=== PATIENT | male | born 1960 | race Caucasian/White ===

== ENCOUNTER 2017-02-07 01:15 | Day surgery (SDC) | payer OTHER ==
[2017-02-07] VITALS (14 sets, daily range): BP systolic 92–127; BP diastolic 53–72; PULSE 71–83; RESP 12–22; O2SAT 92–98
[~2017-02-07] VITALS: Ht 172.7 cm; Wt 111.7 kg
[~2017-02-07 01:15] MED LIST: ASPI-973 PO; ATOR20TA PO; CHOL10008 PO; CLOB15CR3 TOP; LISI10TA PO; MULT-666 PO; OMEP20TA86 PO
[2017-02-07] MEDS ORDERED: 0.9% Sodium Chloride 1,000 ML IV ONE (07:40)
[2017-02-07 12:12] LABS: BASOPHILS % (AUTO) 0.4 % (0-3); EOSINOPHILS % (AUTO) 0.6 % (0-5); MONOCYTES % (AUTO) 12.2 % (4-12); Mean Corpuscular Hemoglobin 28.4 pg (27.0-35.0); Mean Corpuscular Volume 84.9 fL (81-100); NEUTROPHILS % (AUTO) 58.5 % (40-74); Platelet Count 210 bil/L (150-400)
--- NOTE | 2017-02-07 12:25 | NUR ---
PATIENT ADMITTED FOR HEART CATH WITH DR. MARIE. HE IS ACCOMPANIED BY HIS AND MOTHER.
[2017-02-07 12:33] LABS: INR 0.97 ratio
[2017-02-07] MEDS ORDERED: 0.9% Sodium Chloride 1,000 ML ONE ×2 (13:29→15:26)
[2017-02-07] MEDS ORDERED: Heparin 1,000 Unit/mL 10 mL Inj ONE ×3 (13:29→14:45)
[2017-02-07] MEDS ORDERED: Heparin 1,000 Units/500 mL NS Premix IV ONE (13:29)
[2017-02-07] MEDS ORDERED: fentaNYL-PF 50 mCg/mL 2 mL Inj ONE ×2 (13:58→15:11)
[2017-02-07] MEDS ORDERED: Nitroglycerin 50,000 mcg/250 mL D5W Premix IV ONE (14:42)
[2017-02-07] MEDS ORDERED: Atropine 1 mg/10 mL (Code) Syringe ONE (14:45)
[2017-02-07] MEDS ORDERED: Adenosine Inj 40 ML IV ONE (14:49)
[2017-02-07] MEDS ORDERED: 0.9% Sodium Chloride 100 ML ONE (14:50)
--- NOTE | 2017-02-07 15:21 | CS94 ---
[address] [address] DIAGNOSTIC CARDIAC CATHETERIZATION PATIENT: ISABELLA CASTANEDA : 1960 MR#: [id number] ADMIT: 02/07/2017 JOB ID: [id number] SERVICE DATE: 02/07/2017 CHIEF COMPLAINT: Exertional chest pain. PATIENT PRESENTATION: This 56-year-old man with hypertension, hyperlipidemia, sleep apnea, and excess weight, with worsening dyspnea on exertion and abnormal graded exercise stress test with myocardial perfusion imaging characterized by medium size, moderate intensity, reversible inferolateral perfusion defect. PROCEDURES PERFORMED: 1. Left heart catheterization--selective coronary angiogram. 2. Right common femoral artery vascular access under ultrasound guidance. 3. Left ventricular end-diastolic pressure checking. COMPLICATIONS: None. Case turned over for intervention. METHOD: Following informed consent, patient was prepped and draped in usual sterile fashion. A 6-Trinidadian sheath was placed in right common femoral artery under ultrasound guidance. Sheath placement was confirmed via femoral angiogram. JL4 and JR4 catheters were used to engage left main and right coronary artery ostia, respectively. Hand injection and craniocaudal angulation was used to obtain selective coronary angiograms. All exchanges were performed over a wire. At this point in time, pigtail was placed into the left ventricle. Left ventricular end-diastolic pressure was recorded. Pigtail was withdrawn into the aorta under continuous hemodynamic monitoring. There was no evidence of aortic stenosis documented. At this moment in time, case was turned over for intervention. FINDINGS: HEMODYNAMICS: Left ventricular end-diastolic pressure is 20 at end-expiration. Aortic pressure 133/74. There is no evidence of aortic stenosis based on pullback. Ventriculogram was deferred by intention to conserve contrast in anticipation of upcoming intervention. FEMORAL ANGIOGRAM: Left main gives rise to SFA and profunda. The sheath enters the right common femoral artery at the lower third of the femoral head just above the bifurcation. There is no evidence of contrast extravasation or dissection. No hemodynamically significant peripheral arterial disease. CORONARY ANGIOGRAM: Left main gives rise to LAD circumflex and ramus intermedius. There is mild ostial narrowing which is best appreciated on AMIN cranial view. There was no dampening on engagement present and there was good blowback as well. Left anterior descending gives rise to a large first diagonal branch, a small second diagonal branch and multiple septal perforators. There is an ulcerated, tubular, relatively short stenosis extending from the distal portion of the proximal LAD to the area just distal to the first diagonal takeoff. It is a 75% stenosis. Circumflex is a nondominant vessel. It gives rise to acute marginal branches. There was an 80% stenosis in the midportion of the circumflex just proximal to the first OM. Ramus intermedius is a medium-sized vessel which demonstrates 80% proximal/ostial stenosis. Right coronary artery is a dominant vessel which has nonhemodynamically significant but nevertheless it does have atherosclerotic disease. It gives rise to the PDA and posterolateral branch and actually gives rise to a collateral to the obtuse marginal branch. IMPRESSION: Multi-vessel coronary artery disease involving the very, very distal aspect of proximal left anterior descending, extending into the mid left anterior descending and involving proximal diagonal branch, mid obtuse marginal stenosis and ostial ramus intermedius stenosis. PLAN: Today we will address ramus intermedius disease and will likely address circumflex disease and LAD disease in a stepwise manner to minimize contrast agent exposure. Thank you very much for the opportunity to evaluate this patient. DAVID
--- NOTE | 2017-02-07 16:16 | DI95 ---
[place] [address] INTERVENTIONAL CARDIAC CATHETERIZATION PATIENT: ISABELLA CASTANEDA : 1960 MR#: [id number] ADMIT: 02/07/2017 JOB ID: [id number] DATE OF PROCEDURE: 02/07/2017 PATIENT PROFILE: The patient is a 56-year-old male who presented with angina pectoris. His stress sestamibi was abnormal, consistent with myocardial ischemia. PROCEDURE: 1. Fractional flow reserve to the second diagonal branch. 2. Balloon angioplasty and stenting to the first diagonal branch. VASCULAR CLOSURE DEVICE: Perclose. COMPLICATIONS: None. METHOD: Following diagnostic angiogram performed by Dr. Cristina, heparin 100 units/kg were given. A 6-Polish CLS 3.5 guide was advanced to the left coronary ostium. A flow wire was placed inside the second diagonal branch. Adenosine was given infusion IV. FFR was measured at 0.69. The attention was then to the first diagonal branch. A Run-through wire was placed inside this branch. The lesion was pre-dilated with a 2.0 x 15 mm balloon. A Resolute Integrity 2.25 x 12 mm stent was placed inside the lesion and deployed at 12 atmospheres for 15 seconds. A 2.0 x 8 mm balloon was used for post stent deployment dilation. It was inflated up to 10 atmospheres for 15 seconds. Nitroglycerin 200 mcg was given intracoronary. Final angiogram was obtained. Following sheath removal, hemostasis was achieved by using Perclose device. The patient tolerated the procedure well. He was transferred to [facility] in good condition. TOTAL CONTRAST USED: 200 cc. FLUOROSCOPY TIME: 11.2 minutes. RESULTS: 1. FFR of the second diagonal branch is 0.69, which indicated hemodynamic significant stenosis. 2. Successful balloon angioplasty and stenting to the critical first diagonal branch lesion by deploying one drug eluting stent to achieve an excellent angiographic result with LORI-3 flow distally. PLAN: The patient will return for elective intervention to the left anterior descending and second diagonal branch bifurcation lesion as an outpatient. [facility]
--- NOTE | 2017-02-07 18:25 | NUR ---
[facility]EE[facility] POST HEART CATH/PCI ASSUMED CARE OF PT UPON RETURN FROM TWISTER OPERATOR AT 1550. RIGHT GROIN WITH PERCLOSE HAS REMAINED SOFT, NON TENDER, NO BLEEDING OR HEMATOMA NOTED. RIGHT DP AND PT 1-2+. PT IS TAKING PO FLUIDS WITHOUT DIFFICULTY AND IV NS IS INFUSING AT 100ML/HR. DR TURPIN AND DR MARIE HERE TO DISCUSS PROCEDURE AND FUTURE PLANNED INTERVENTIONS. REPORT WAS CALLED TO PRAMOD Leigh RN AND PT AND HIS NURSING CARE WERE TRANSFERRED TO ROOM 2001 AT 1815. TELE ON.
[2017-02-07] MEDS ORDERED: 0.9% Sodium Chloride 250 ML BOLUS IV PRN (18:30)
[2017-02-07] MEDS ORDERED: Sodium Chloride LOK Flush 10 mL Syringe IVFLUSH PRN (18:30)
[2017-02-07] MEDS ORDERED: 0.9% Sodium Chloride 400 ML (4 HRS) IV ONE (18:30)
[2017-02-07] MEDS ORDERED: Ondansetron 2 mg/mL 2 mL Inj IVPUSH PRN (18:30)
[2017-02-07] MEDS ORDERED: Atropine 1 mg/10 mL (Code) Syringe IVPUSH PRN (18:30)
--- NOTE | 2017-02-07 21:35 | NUR ---
BEDREST/SITE Pt on bedrest till 1999. Pt's gait was steady, vitals stable. Pt's right groin site CDI, independent to the bathroom with 700cc output once off bedrest. Pt denies pain, N/V. Pt slightly flushed, but stated he has been flushed all day because he has been a little nervous all day. NS @ 100 till 0200, then SL. Pt drinking plenty of water, no issues noted.
--- NOTE | 2017-02-07 23:52 | NUR ---
DRESSING Pt's right groin site became saturated after ambulating to the restroom x2. Dressing changed and currently CDI with no hematoma or bruising noted. Pt's vitals stable, no pain, CMS intact, no other issues noted at this time.
[2017-02-08 02:47] VITALS: BP 111/64; PULSE 77; RESP 20; O2SAT 94
[2017-02-08 03:15] LABS: Mean Corpuscular Hemoglobin 28.3 pg (27.0-35.0); Mean Corpuscular Volume 86.3 fL (81-100)
[2017-02-08 05:48] VITALS: PULSE 82
[2017-02-08 09:08] VITALS: BP 129/75; PULSE 68; RESP 20; O2SAT 95
[2017-02-08] MEDS ORDERED: CLOP75TA3 PO (09:27)
[2017-02-08] MEDS ORDERED: METO25TA3 PO (09:27)
--- NOTE | 2017-02-08 09:29 | PCM.DIMED ---
Discharge Instructions Date of Service Feb 08, 2017 Dates of Hospitalization 02/07/2017 Discharge Diagnosis Discharge Diagnosis cad Diet Heart Healthy Activity Other (no heavy lifting (no more than 10 lbs for 10 days)) Call your provider Shortness of breath, Chest pain Patient Instructions Additional Information Dr. Barry's night manager will call you when he will do angiogram and stents Jovana Cristina MD Feb 08, 2017 09:29
[2017-02-08 10:08] VITALS: PULSE 77
--- NOTE | 2017-02-08 13:43 | NUR ---
Discharged Pt. was discharged to home with . Pt. took all his belongings with him from room [address] [place] [address]. Pt. was given educational material on new prescriptions. Pt. was also instructed to follow up with Dr. Barker in 1 Week, follow up with Dr. Cristina in 1-2 weeks, and that Dr. Barry's pipe and test supervisor would call Pt. when he will do angiogram and stents. Pt. states he understood.
--- NOTE | 2017-02-09 13:43 | DIS ---
[address] [address] DISCHARGE SUMMARY PATIENT: ISABELLA CASTANEDA : 1960 MR#: [id number] ADMIT: 02/07/2017 JOB ID: [id number] DIS: 02/08/2017 CHIEF COMPLAINT: Abnormal stress test. PROCEDURES PERFORMED: 1. Left heart catheterization--selective coronary angiogram demonstrated hemodynamically significant disease involving mid LAD stenosis, ostial 1st diagonal stenosis, ostial 2nd diagonal stenosis, mid circumflex stenosis. 2. Fractional flow reserve of the circumflex lesion which proved that it was not hemodynamically significant. 3. Resolute drug-eluting stent deployed to first diagonal lesion. 4. LAD lesion and the second diagonal lesions will be fixed at some point in the future. 5. Telemetry which demonstrated brief, second long run of ventricular tachycardia. Very brief eight-beat run of nonsustained ventricular tachycardia. HOSPITAL COURSE: The patient was admitted electively for left heart catheterization following abnormal stress test that demonstrated inferolateral perfusion defect. Cath showed mid LAD disease, 1st D1 disease, second diagonal disease, and circumflex disease. The patient underwent intervention to the first diagonal branch. However, because he was at risk for contrast nephropathy, intervention to the LAD and a second diagonal, which would have to be done in a kissing balloon fashion, was delayed. The patient recovered well overnight. Hemostasis was obtained via Perclose closure device. He had no complications. Therefore, he is discharged home in stable condition on the following medications. 1. Aspirin 81 mg daily. 2. Plavix 75 mg daily. 3. Toprol-XL 25 mg daily. 4. Lipitor 20 mg daily. 5. Lisinopril 10 mg daily. 6. Pepcid 20 mg twice a day as needed. 7. He was instructed to stop omeprazole since this can interact with Plavix. He will be contacted by Dr. Collins's real estate administrative assistant to decide on the date of his upcoming elective intervention to the diagonal and mid LAD. Thank you very much for the opportunity to evaluate him.
== END 2017-02-08 11:29 | disposition home or self-care (01) ==
LOC: SOUO 01:15 → EDSTATUS 14:40 → PCC 18:11 → SOUO 02-08 11:29
PROVIDERS: ATTEND Internal Medicine
DX: I25.119 Atherosclerotic heart disease of native coronary artery with unspecified angina pectoris (principal); I10 Essential (primary) hypertension; E78.5 Hyperlipidemia, unspecified; G47.33 Obstructive sleep apnea (adult) (pediatric); Z79.82 Long term (current) use of aspirin; E78.00 Pure hypercholesterolemia, unspecified; E78.1 Pure hyperglyceridemia; E66.3 Overweight; Z68.38 Body mass index [BMI] 38.0-38.9, adult; I47.2 Ventricular tachycardia
CPT/HCPCS: 36415; 80048; 85025; 85027; 85610; 93458; 93571; 99152; 99153; C1725; C1760; C1769; C1874; C1887; C9600; J0153; J1200; J1644; J2060; J2250; J3010; J7030; Q9967

== ENCOUNTER 2017-02-21 00:46 | Day surgery (SDC) | payer OTHER ==
[2017-02-21] VITALS (13 sets, daily range): BP systolic 117–131; BP diastolic 69–88; PULSE 66–84; RESP 12–20; O2SAT 93–97
[~2017-02-21] VITALS: Ht 172.7 cm; Wt 108.9 kg
[~2017-02-21 00:46] MED LIST changes: +CLOP75TA3 PO; +METO25TA3 PO; -OMEP20TA86 PO
[2017-02-21 09:28] LABS: BASOPHILS % (AUTO) 0.5 % (0-3); EOSINOPHILS % (AUTO) 1.8 % (0-5); MONOCYTES % (AUTO) 8.2 % (4-12); Mean Corpuscular Hemoglobin 27.9 pg (27.0-35.0); Mean Corpuscular Volume 84.2 fL (81-100); NEUTROPHILS % (AUTO) 63.3 % (40-74); Platelet Count 238 bil/L (150-400)
--- NOTE | 2017-02-21 09:33 | NUR ---
Admit [facility] Admitted to [facility] 3 about 0830. VSS. Denies pain. Tele SR. IVs started and labs sent. Dr. Barry in to consent pt. See EMR for admit info and assessment. Procedure and recovery reviewed and verbalizes understanding. Awaiting lab results and open hearth furnace laborer.
[2017-02-21] MEDS ORDERED: Nitroglycerin 50,000 mcg/250 mL D5W Premix IV ONE (09:34)
[2017-02-21] MEDS ORDERED: Heparin 1,000 Unit/mL 10 mL Inj ONE ×2 (09:34→11:06)
[2017-02-21] MEDS ORDERED: Heparin 1,000 Units/500 mL NS Premix IV ONE (09:34)
[2017-02-21] MEDS ORDERED: Heparin 5,000 Units/500 mL NS Premix IV ONE ×2 (09:34→11:44)
[2017-02-21] MEDS ORDERED: fentaNYL-PF 50 mCg/mL 2 mL Inj ONE ×2 (09:56→11:55)
[2017-02-21] MEDS ORDERED: Atropine 1 mg/10 mL (Code) Syringe ONE (10:25)
--- NOTE | 2017-02-21 13:33 | NUR ---
Received Pt to laboratory animal care veterinarian about 1000. Returned about 1255. VSS. Denies pain. Tele SR. Groin precautions reviewed and verbalizes understanding. Taking po well. IVF infusing per orders. SPO2 occ. drifts down to 88%. O2 placed at 2L BNC with SPO2 mid 90's. Dozing intermittently but awakens quickly to verbal. Cont. to monitor per orders.
--- NOTE | 2017-02-21 14:26 | DI95 ---
[address] [address] INTERVENTIONAL CARDIAC CATHETERIZATION PATIENT: ISABELLA CASTANEDA : 1960 MR#: [id number] ADMIT: 02/21/2017 JOB ID: [id number] DATE OF PROCEDURE: 02/21/2017 PATIENT PROFILE: The patient is a 56-year-old male with history of hypertension, hypercholesterolemia, obesity and obstructive sleep apnea. The patient has angina pectoris with abnormal stress test. PROCEDURE: Complex angioplasty and stent placement to the bifurcation lesion of the mid left anterior descending and second diagonal branch. VASCULAR CLOSURE DEVICE: StarClose. COMPLICATION: Dissection of the mid and distal left anterior descending. METHOD: Vascular access was obtained from the right groin under 1% lidocaine local anesthesia using a 7-Maltese sheath. A 7-Maltese CLS 3.5 guide was advanced to the left coronary ostium. One Run-through wire was placed inside the diagonal branch. Another Run-through wire was placed inside the left anterior descending artery. A 2.5 x 15 mm balloon was used to pre dilate in the diagonal branch. A 3.0 x 15 mm balloon was used to pre dilate in the left anterior descending. A Resolute Integrity 2.5 x 12 mm stent was placed in the left anterior descending artery and covered the origin of the second diagonal branch. This was deployed at 18 atmospheres for 25 seconds. The diagonal wire was then pulled back and went through the stent strut into the left anterior descending artery. A Sprinter 1.25 x 15 mm balloon was then used to dilate to the stent strut. This was followed by a 2.0 and a 3.0 mm balloon. An attempt to advanced a Resolute 3.0 x 22 mm stent to the left anterior descending artery lesion was unsuccessful. The left anterior descending artery lesion was then dilated again with a 1.25, a 2.0 and a 3.0 mm balloon. The angiogram after the 3.0 mm balloon inflation showed dissection into the distal mid portion. A Xience 2.25 x 15 mm stent was then placed inside the distal mid left anterior descending artery lesion and deployed at 14 atmospheres for 18 seconds. The angiogram at this point demonstrates further dissection distal to the stent. An attempt to advance a Xience 2.25 x 12 mm stent to the lesion was unsuccessful. A 2.0 mm balloon was then used to dilate the lesion. A Xience 2.25 x 12 mm stent was then placed distal to the first stent and deployed at 9 atmospheres for 15 seconds. A Resolute Integrity 2.25 x 14 mm stent was placed proximal to the first Xience stent and deployed at 14 atmospheres for 20 seconds. A second Resolute Integrity 2.25 x 22 mm stent was placed proximal to the third stent and deployed at 13 atmospheres for 20 seconds. Nitroglycerin was given intracoronary. Final angiogram was obtained. Right femoral angiogram was performed before sheath removal. Hemostasis was achieved by using a StarClose device. The patient tolerated the procedure well. He was transferred to [facility] in good condition. TOTAL CONTRAST USED: 250 cc. FLUOROSCOPY TIME: 16.6 minutes. RESULTS: Successful balloon angioplasty and stenting to the bifurcation lesion of the left anterior descending artery and second diagonal branch by deploying five drug-eluting stents with four stents in the left anterior descending and one stent in the diagonal branch to achieve an excellent angiographic result with LORI-3 flow distally. The procedure was complicated by coronary dissection, which was successfully treated with stenting. NOTE: Please use modifier code 22 due to complex and prolonged procedure. MTDD
--- NOTE | 2017-02-21 15:45 | NUR ---
Transfer Groin had track ooze. Manual pressure held for 10 min x2 and improved. lab rep placed pressure dressing for 45min then changed. No hematoma. VSS. Tele SR. Denies pain. Report called to Yasmin Sánchez RN. Transported to [facility] via bed by staff. with pt. Pt. in no distress.
[2017-02-21] MEDS ORDERED: Atropine 1 mg/10 mL (Code) Syringe IVPUSH PRN (16:05)
[2017-02-21] MEDS ORDERED: 0.9% Sodium Chloride 400 ML (4 HRS) IV ONE (16:05)
[2017-02-21] MEDS ORDERED: Ondansetron 2 mg/mL 2 mL Inj IVPUSH PRN (16:05)
--- NOTE | 2017-02-21 16:14 | NUR ---
Admit Pt admitted to [facility] from [facility] at 1600. A&Ox3, Vitals stable, no c/o of pain, groin site soft and non tender, minimal bruising. Bedrest till 1700.
[2017-02-21] MEDS ORDERED: 0.9% Sodium Chloride 250 ML BOLUS IV PRN (16:15)
[2017-02-21] MEDS: 0.9% Sodium Chloride 1,000 ML IV ONE ×2 (16:16→16:55)
[2017-02-21] MEDS: Clobetasol Prop 0.05% 15 Gm Ointment TOPICAL SCH (20:18)
[2017-02-21] MEDS ORDERED: Clobetasol Prop 0.05% 15 Gm Ointment TOPICAL SCH (20:30)
[2017-02-22 03:17] VITALS: BP 113/64; PULSE 70; RESP 20; O2SAT 96
[2017-02-22 05:21] VITALS: PULSE 67
[2017-02-22 05:54] LABS: Mean Corpuscular Hemoglobin 28.2 pg (27.0-35.0); Mean Corpuscular Volume 85.1 fL (81-100)
--- NOTE | 2017-02-22 07:28 | NUR ---
Activity/Groin Site Pt has been able to get up with SBA of that is in the room to go to the bathroom to use the urinal. Pt has had no c/o of chest pain, groin pain, or dizziness when getting OOB to go to the bathroom. Pt's groin site continues to be soft and nontender with no visible drainage on the gauze with bio-occlusive dressing. Pt has pulses bilaterally in both lower extremities.
[2017-02-22] MEDS ORDERED: MeTOProlol XL 25 mg ER24 Tablet PO SCH (08:30)
[2017-02-22] MEDS: Clobetasol Prop 0.05% 15 Gm Ointment TOPICAL SCH (08:30)
[2017-02-22 08:40] VITALS: BP 126/76; PULSE 76; RESP 16; O2SAT 96
[2017-02-22 09:25] VITALS: PULSE 73
--- NOTE | 2017-02-22 10:44 | NUR ---
Social Work Note: Screen Note Data& Assessment: EMR reviewed. Russel Day is a 56 year old male cardiac pt here for chest pain. Pt has [employer] insurance coverage and sees Mariano Barker DO for primary care. Pt lives in [place] with his spouse and is independent at baseline. Pt is ambulating with his in his room, SBA with nursing. No discharge needs identified at this time. SW to continue to follow if any needs arise. Plan: Anticipated discharge home via POV when medically ready. No discharge needs identified at this time. SW to continue to follow if any needs arise. DAVID Quinn
--- NOTE | 2017-02-22 10:54 | PCM.DIMED ---
Discharge Instructions Date of Service Feb 22, 2017 Dates of Hospitalization 02/21/2017 Discharge Diagnosis Discharge Diagnosis Elective PCI for CAD Diet Heart Healthy Activity Other (No lifting of more than 5 pounds for one week) Patient Instructions Provider: Jovana Cristina MD Follow-up in: 2 weeks Kati Kingston MD Feb 22, 2017 10:54
--- NOTE | 2017-02-22 13:55 | NUR ---
Discharge Pt left with at 1300. All belongings taken with, Discharge instructions gone over and understood. Questions answered. IV and tele removed.
== END 2017-02-22 13:25 | disposition home or self-care (01) ==
LOC: SOUO 00:46 → PCC 15:59 → SOUO 02-22 13:25
PROVIDERS: ATTEND Internal Medicine Interventional Cardiology
DX: I25.119 Atherosclerotic heart disease of native coronary artery with unspecified angina pectoris (principal); I97.88 Other intraoperative complications of the circulatory system, not elsewhere classified; I25.42 Coronary artery dissection; I10 Essential (primary) hypertension; E78.5 Hyperlipidemia, unspecified; G47.33 Obstructive sleep apnea (adult) (pediatric); Z79.82 Long term (current) use of aspirin; E78.00 Pure hypercholesterolemia, unspecified; E78.1 Pure hyperglyceridemia; Z68.38 Body mass index [BMI] 38.0-38.9, adult; E66.9 Obesity, unspecified
CPT/HCPCS: 36415; 80048; 85025; 85027; 93005; 99152; 99153; C1725; C1760; C1769; C1874; C1887; C9600; C9601; J0461; J1200; J1644; J2060; J2250; J3010; J7030; Q9967

== ENCOUNTER 2017-02-24 21:22 | Inpatient (IN) | payer OTHER ==
[~2017-02-24] VITALS: Ht 172.7 cm; Wt 107.6 kg
[2017-02-24] MEDS ORDERED: Senna-Docusate 8.6-50 mg Tablet PO PRN (22:45)
[2017-02-24] MEDS ORDERED: Ondansetron 2 mg/mL 2 mL Inj IVPUSH PRN (22:45)
[2017-02-24] MEDS ORDERED: Alum-Mag Hydrox-Simeth 30 mL Suspension PO PRN (22:45)
[2017-02-24] MEDS ORDERED: Polyethylene Glycol (PEG) 17 Gm Powder PO PRN (22:45)
[2017-02-24] MEDS ORDERED: LORazepam 0.5 mg Tablet PO ONE (23:00)
[2017-02-24 23:16] VITALS: BP 132/95; PULSE 82; RESP 16; O2SAT 96
[2017-02-24] MEDS ORDERED: MAGN400C PO (23:44)
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
[2017-02-24] MEDS: Sodium Chloride LOK Flush 10 mL Syringe IVFLUSH SCH (23:57)
[2017-02-25] VITALS (9 sets, daily range): BP systolic 115–135; BP diastolic 73–83; PULSE 72–92; RESP 16–20; O2SAT 94–99
[2017-02-25] MEDS: 0.9% Sodium Chloride 1,000 ML IV SCH ×3 (01:23→18:34)
[2017-02-25 03:08] LABS: BASOPHILS % (AUTO) 0 % (0-3); EOSINOPHILS % (AUTO) 1 % (0-5); MONOCYTES % (AUTO) 10 % (4-12); Mean Corpuscular Volume 84.7 fL (81-100); NEUTROPHILS % (AUTO) 68 % (40-74); Platelet Count 255 bil/L (150-400)
[2017-02-25 03:48] LABS: INR 0.96 ratio
[2017-02-25 05:07] LABS: TROPONIN T 0.778 ug/L (0.0-0.011)
[2017-02-25] MEDS ORDERED: Heparin 5,000 Unit/mL Inj IVPUSH ONE (05:15)
[2017-02-25] MEDS ORDERED: Heparin 25K Unit/500mL 0.45 NS 25,000 UNIT in IV Premix 1 EACH IV SCH ×2 (05:15→13:45)
--- NOTE | 2017-02-25 07:23 | NUR ---
Admit Note/Cardiac/Anxiety/O2 Pt admitted to room 2006 around 2300, admission and med rec completed by Christianne Renner RN. Pt denied any chest pain but did voice anxiety over situation. MD ordered one time Ativan dose which was somewhat effective. Pt appeared to sleep intermittently though still voiced some anxiety when awake. Pt tele SR 70s, BP stable. Trops trended up and CKMB at critical level this morning, MD notified and ordered Heparin drip. Pt NPO starting around 0100, wet swabs given for oral care. Pt on RA while awake, desats on occasion while asleep and placed on 2L NC, monitored on SUPERVISOR MACHINING.
[2017-02-25] MEDS: Sodium Chloride LOK Flush 10 mL Syringe IVFLUSH SCH ×3 (07:59→22:36)
[2017-02-25] MEDS ORDERED: MeTOProlol XL 25 mg ER24 Tablet PO SCH (08:30)
--- NOTE | 2017-02-25 08:36 | PCM.PNMED ---
Subjective Date of Service Feb 25, 2017 Subjective No chest pain or dyspnea. No nausea, or diaphoresis. No abdomen pain. Some anxiety. Overnight events reviewed. Exam Vital Signs Vital Sign - Last Date Time Temp Pulse Resp B/P Pulse Ox O2 Delivery O2 Flow Rate FiO2 02/25/17 08:02 36.2 79 16 135/79 99 Room Air 02/25/17 03:41 2.00 Intake and Output 02/24/17 02/24/17 02/25/17 Cumulative From/Thru 15:00 23:00 07:00 02/24/17 23:18 - 02/25/17 06:29 Intake Total 586 ml 586 ml Balance 586 ml 586 ml Intake IV Total 586 ml 586 ml Exam Alert and oriented. No distress, fluent speech Anicteric sclera Lungs clear Regular heart, no murmur. Abdomen soft, ND No edema. Good pulses. IVs and Medications Medications Reviewed: Medications were reviewed in detail Lab and Diagnostics Result Diagram: 02/25/17 0239 02/25/17 0239 Assessment & Plan # Acute Coronary Syndrome (NSTEMI), Present on Admission, improving. -Patient presented to [facility] urgency department complaining of acute onset substernal chest pressure rated 7 out of 10 and constant for her to 1.5 hours that resolved on 3 nitroglycerin pills and Trops up to 0.777 at peak value. Will continue dual antiplatelets as well as metoprolol and heparin drip. Recently had multiple stents (6). Will discuss with cardiology (cath verses medical management). # Hypercholesterolemia - We will continue home medication atorvastatin # Hypertension - Continue home medication metoprolol succinate ER 25 mg daily Disposition: Admitted to observation, secondary to severity of presenting symptoms, treatment plan, complexity of clinical work up, and risk of adverse events. CODE STATUS: Full code PCP: Dr. Joesph Nichols [facility] Vice President Diversity Dr. Cristina shoe repair cobbler Dr. Barry DVT PE prophylaxis: IV heparin drip Pain Evaluation: Adequate Pain Control VTE Prophylaxis: Sub-Q Heparin (Unfractionated) VTE Mechanical Devices: Intermittant Pneumatic CD Resuscitation Status: CPR: Attempt Resuscitation Time spent 25 min Jaleel Ivan MD Feb 25, 2017 08:36 Jaleel Ivan MD Feb 25, 2017 08:36
[2017-02-25] MEDS ORDERED: LORazepam 0.5 mg Tablet PO ONE ×2 (13:50→23:20)
[2017-02-25] MEDS: Heparin 5,000 Unit/mL Inj IVPUSH PRN ×2 (14:01→18:21)
--- NOTE | 2017-02-25 18:47 | NUR ---
Heparin drip and cardiac lab Heparin drip infusing at 1250 u/hr now. Next PTT scheduled at 2315 tonight. Instructed pt. to NPO after midnight in preparation for cardiac catheterization tomorrow at 1000. No pain, ADLs independent.
[2017-02-25] MEDS: MeTOProlol XL 25 mg ER24 Tablet PO SCH (19:31)
--- NOTE | 2017-02-25 20:14 | CONS ---
[address] [address] CONSULTATION REPORT PATIENT: ISABELLA CASTANEDA : 1960 MR#: [id number] ADMIT: 02/24/2017 JOB ID: [id number] DATE OF SERVICE: 02/25/2017 I have been asked by the hospitalist to see the patient, who presents with a [id number] TX four days after extensive LAD stenting. The patient is a very pleasant, 56-year-old gentleman with a multiple cardiac risk factors including a strong family history, a history of hyperlipidemia and hypertension, but without diabetes or smoking. He gives a history of atypical right precordial chest discomfort over the last several months which was somewhat persistent but aggravated predominantly by lifting and improved with rest, but not clearly anginal at all. He was aware of increased exertional dyspnea and underwent an exercise treadmill stress test at [facility]. He developed modest abnormal ST-segment changes after exercising for about 6-1/2 to 7 minutes on a Jose protocol. He then was referred to Cardiology and underwent a nuclear cardiac stress study for further investigation, and at this point, he was actually able to exercise for 9-1/2 minutes on a Jose protocol with EKG changes of ischemia, limited by dyspnea, but again on neither treadmill did he have any symptoms of angina-like chest discomfort. In any event, he had evidence of reversible ischemia on his nuclear medicine stress study and subsequently was brought in and underwent diagnostic coronary angiography on February 07. This demonstrated multivessel coronary disease with modest left main ostial narrowing. The LAD showed significant proximal stenosis in the region of a proximal diagonal vessel. He also had an 80% stenosis in the mid portion of the circumflex and a ramus intermedius vessel, demonstrating an 80% proximal or ostial stenosis. The right coronary artery was dominant with diffuse moderately severe atherosclerotic disease but no hemodynamically significant lesions. The patient underwent intervention by Dr. Collins with a balloon angioplasty and stenting to the first diagonal vessel. He was subsequently brought back for repeat intervention on February 21, and at that time, underwent a complicated procedure. He had a stent placed to the LAD proximally. Actually I think it is meant to be the diagonal vessel was initially stented and then a wire was put through that to the LAD and ultimately after balloon angioplasty, the LAD was noted to have a dissection into the distal mid LAD. Subsequently, multiple stents were used to patch up the LAD distal to the proximal stenosis. He ended up with a total of five or six stents to the LAD at that time. Angiographic results actually looked quite good and the patient was discharged home the following day on combination of: 1. Aspirin 81 mg daily. 2. Clopidogrel 75 mg daily. 3. Atorvastatin 40 mg a day. 4. Lisinopril 10 mg a day. 5. Metoprolol succinate 25 mg daily. The patient notes that after the 1st stent was placed, he noted that his right precordial discomfort resolved. He felt well for the next four days and was able to be active physically, but yesterday while at rest, developed the onset of a substernal precordial squeezing, pressure-like discomfort which radiated into the medial aspect of his left arm and was associated with symptoms of moderate dyspnea and mild diaphoresis. His promptly took him to the emergency department at [facility] where he received three sublingual nitroglycerin tablets and topical nitro paste with resolution of the discomfort. However, this dropped his blood pressure into the 80s and the nitropaste was removed with improvement in his blood pressure. His troponin was abnormal and subsequently he was transferred here for further investigation. He has remained free of recurrent discomfort in the interval. However, laboratory data shows that his troponin increased from 0.336 on admission yesterday to a peak of 1.1 earlier today. EKG shows some T-wave inversions which are somewhat subtle in the lateral precordial leads. The rest of his evaluation is fairly unremarkable. His past medical history and review of systems is unchanged from previous examinations. He has had no bleeding issues at all. He is quite anxious and cannot get his mind off of his cardiac- related issues at this point in time, but has had no problems with symptomatic dyspnea or nocturnal pulmonary congestion, palpitations, or dysrhythmias. He has seems to be tolerating all of his medications well. PHYSICAL EXAMINATION: Shows a pleasant, 56-year-old gentleman in no acute distress. HEENT examination is unremarkable. His cardiovascular examination is unremarkable otherwise. Heart sounds normal. IMPRESSION: The patient presents with a [id number] myocardial infarction four days after extensive stenting to the left anterior descending. It is possible that one of his small diagonal vessels occluded or perhaps septal manual lathe machinist branch. His distal circumflex or his right coronary artery are also potential culprits. The potential is that clopidogrel has been ineffective and maybe he had a small amount of stent thrombosis that accounts for his event. I am going to recommend that we change him from clopidogrel to prasugrel at 10 mg daily to eliminate any potential concern about him being unresponsive to clopidogrel or less responsive to clopidogrel. I will get him scheduled to undergo diagnostic coronary angiography again tomorrow morning. Dr. Collins is available tomorrow morning and I have not yet been able to touch base with Dr. Collins, but will see if we can get him to repeat Mr. Castaneda's coronary angiography tomorrow. I am hopeful that he does not require any further stenting.
[2017-02-26] VITALS (17 sets, daily range): BP systolic 109–145; BP diastolic 65–90; PULSE 67–81; RESP 14–20; O2SAT 92–99
[2017-02-26] MEDS: 0.9% Sodium Chloride 1,000 ML IV SCH ×2 (02:39→12:38)
[2017-02-26] MEDS: Sodium Chloride LOK Flush 10 mL Syringe IVFLUSH SCH ×3 (08:30→23:58)
[2017-02-26] MEDS: MeTOProlol XL 25 mg ER24 Tablet PO SCH ×2 (08:32→20:06)
--- NOTE | 2017-02-26 08:44 | PCM.PNMED ---
Subjective Date of Service Feb 26, 2017 Subjective No chest pain or dyspnea overnight. No nausea or diaphoresis. Less anxiety. No diarrhea or abdomen pain. No overnight events. Exam Vital Signs Vital Sign - Last Date Time Temp Pulse Resp B/P Pulse Ox O2 Delivery O2 Flow Rate FiO2 02/26/17 04:32 36.5 80 20 125/76 96 Room Air 02/25/17 03:41 2.00 Intake and Output 02/25/17 02/25/17 02/26/17 Cumulative From/Thru 15:00 23:00 07:00 02/24/17 23:18 - 02/26/17 06:53 Intake Total 200 ml 2436 ml 1979 ml 5201 ml Output Total 1525 ml 1000 ml 2650 ml 5175 ml Balance -1325 ml 1436 ml -671 ml 26 ml Intake Oral 220 ml 200 ml 420 ml IV Total 200 ml 2216 ml 1779 ml 4781 ml Output Urine Total 1525 ml 1000 ml 2650 ml 5175 ml Exam Alert and oriented. No distress, fluent speech Anicteric sclera Lungs clear Regular heart, no murmur. Abdomen soft, ND No edema. Good pulses. No skin rash. IVs and Medications Medications Reviewed: Medications were reviewed in detail Lab and Diagnostics Result Diagram: 02/26/17 0256 02/25/17 0239 Assessment & Plan #. Acute Coronary Syndrome (NSTEMI), Present on Admission, improving. Will continue dual antiplatelets as well as metoprolol and heparin drip. Recently had multiple stents (6). He is going for angiogram this AM. Repeat troponin. #. Hypercholesterolemia - We will continue home medication atorvastatin #. Hypertension - Continue home medication metoprolol succinate ER 25 mg daily Pain Evaluation: Adequate Pain Control VTE Prophylaxis: Sub-Q Heparin (Unfractionated) VTE Mechanical Devices: Intermittant Pneumatic CD Resuscitation Status: CPR: Attempt Resuscitation Jaleel Ivan MD Feb 26, 2017 08:44
[2017-02-26 09:00] LABS: Mean Corpuscular Hemoglobin 28.2 pg (27.0-35.0); Mean Corpuscular Volume 85.4 fL (81-100)
[2017-02-26] MEDS ORDERED: Heparin 5,000 Units/500 mL NS Premix IV ONE (09:06)
[2017-02-26] MEDS ORDERED: Heparin 1,000 Units/500 mL NS Premix IV ONE (09:06)
[2017-02-26] MEDS ORDERED: Nitroglycerin 50,000 mcg/250 mL D5W Premix IV ONE (09:38)
[2017-02-26] MEDS ORDERED: Heparin 1,000 Unit/mL 10 mL Inj ONE (09:49)
[2017-02-26] MEDS ORDERED: fentaNYL-PF 50 mCg/mL 2 mL Inj ONE (09:50)
[2017-02-26 09:56] LABS: TROPONIN T 0.565 ug/L (0.0-0.011)
[2017-02-26] MEDS ORDERED: Eptifibatide IV Infusion 75,000 MCG in IV Premix 1 EACH IV ONE (11:40)
[2017-02-26] MEDS ORDERED: 0.9% Sodium Chloride 1,000 ML IV PRN (11:48)
[2017-02-26] MEDS ORDERED: 0.9% Sodium Chloride 250 ML IV PRN (11:48)
[2017-02-26] MEDS ORDERED: Ondansetron 2 mg/mL 2 mL Inj IVPUSH PRN (11:50)
[2017-02-26] MEDS ORDERED: Eptifibatide 20,000 mCg/10 mL Inj ONE (12:14)
[2017-02-26] MEDS: Eptifibatide IV Infusion 75,000 MCG in IV Premix 1 EACH IV SCH ×2 (12:38→18:13)
[2017-02-26] MEDS ORDERED: Eptifibatide 20,000 mCg/10 mL Inj IV ONE (12:45)
--- NOTE | 2017-02-26 13:38 | NUR ---
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 Alert and oriented, but sleepy. Right groin site puffy, but soft and nontender. Small palpable area noted above old star closure device; unchanged throughout recovery. Vitals stable throughout. Pt placed on 2L oxygen for hx HELLEN while sleeping. Per MD orders, pt bolused w/ Integrilin and drip started at 1130; rate/dose verified w/ pharmacy. Report given to NANDO Reyes. Pt transported back to room 2006 at 1330 in stable condition.
--- NOTE | 2017-02-26 15:21 | NUR ---
Social Work Note: Screen Note Data& Assessment: EMR reviewed. Russel Day is a 56 year old male admitted on 02/24/2017 for chest pain. Pt has [employer] insurance coverage. Pt sees Matthew Barker DO for primary care. Pt lives in [place] with family and is independent at baseline. Pt has been independent in his room. No discharge needs identified at this time. SW to continue to follow if any needs arise. Plan: Anticipated discharge home via POV when medically ready. No discharge needs identified at this time. SW to continue to follow if any needs arise. DAVID Quinn
--- NOTE | 2017-02-26 18:16 | NUR ---
Cath Pt. went for his procedure at about 1000 this morning and did not return to room [address] [place] [address] until ~1300. Pt. had an incision to his right groin. Right groin has a small bruise from previous cath and Pt. states soreness but no pain. Upon palpation sight is soft and nontender. Minimal amounts of blood for drainage tegaderm dressing with no dry gauze. Dorsalis pedis pulses palpable and Pt denies any dizziness or light headedness as well as no CP or SOB. Pt. is off bedrest since 1500 and Pt. has a strong steady gait.
--- NOTE | 2017-02-26 21:09 | CS94 ---
[address] [address] DIAGNOSTIC CARDIAC CATHETERIZATION PATIENT: ISABELLA CASTANEDA : 1960 MR#: [id number] ADMIT: 02/24/2017 JOB ID: [id number] SERVICE DATE: 02/26/2017 PATIENT PROFILE: The patient is a 56-year-old male with history of hypertension, hypercholesterolemia, obesity and sleep apnea. He presented with angina pectoris initially and had a stent placement to the first diagonal branch on February 07, 2017 and complex left anterior descending artery and second diagonal branch bifurcation stenting on February 21, 2017. The patient was doing well until two days ago when he developed chest discomfort, which was relieved by three nitroglycerin. His troponin went up to 1.10. PROCEDURE: 1. Retrograde left heart catheterization. 2. Selective coronary angiography. 3. Intracoronary thrombolysis. 4. Vascular closure device, Perclose. COMPLICATIONS: None. METHOD: Retrograde left heart catheterization was performed from the right groin under 1% lidocaine local anesthesia using a 6-Nauruan sheath. Selective coronary angiogram was performed in multiple projections, including cranial and caudal angulations with hand injected contrast via CLS 3.5 and 3DRC catheters. The angiogram at this point demonstrated intraluminal thrombus in the distal most stent of the left anterior descending. Integrilin 9.5 cc was given intracoronary. Final angiogram was obtained. The patient was taken off the table earlier than planned due to there was a patient with VF arrest in [facility]. Right femoral angiogram was performed before sheath removal. Hemostasis was achieved by using a Perclose device. The patient tolerated the procedure well. He was transferred to [facility] in good condition. TOTAL CONTRAST USED: 30 cc. FLUOROSCOPY TIME: One minutes. RESULTS: 1. Selective coronary angiogram a. Left main coronary artery is normal. b. The left anterior descending artery is transapical and has in- stent thrombosis in the distal most stent with LORI-3 flow. The first and second diagonal branches remains patent. c. The circumflex artery has diffuse [id number] disease. d. The dominant right coronary artery has diffuse irregularity of 20 % to 30% stenosis throughout. The right posterior descending branch has severe stenosis in the distal portion. The right posterolateral branch has minor irregularity. 2. Integrilin 9.5 cc was given intracoronary due to in-stent thrombosis of the distal-most stent of the left anterior descending. 3. Aortic pressure is 133/81 mmHg. MTDD
--- NOTE | 2017-02-26 22:24 | PROG NOTE ---
[address] [address] PROGRESS NOTE PATIENT: ISABELLA CASTANEDA : 1960 MR#: [id number] ADMIT: 02/24/2017 JOB ID: [id number] DATE: 02/26/2017 The patient underwent repeat coronary angiography this morning which showed thrombus or in-stent thrombosis of his LAD stenting but with LORI grade 3 flow. He was treated with intracoronary Integrilin and then intravenous Integrilin and brought back to the unit where he has done well and remains pain-free. He has had some bleeding of his gums brushing his teeth and eating but has had no recurrent anginal chest discomfort at all and is feeling well otherwise. His right groin site shows a small lump consistent with a small hematoma with a slight amount of ecchymoses, but overall he looks quite good. Laboratory shows a declining troponin. PLAN: This gentleman is on Integrilin infusion for 18 hours in addition to aspirin and heparin infusion. We will discontinue heparin and Integrilin tomorrow, and he will continue on Prasugrel 10 mg daily and, if he is stable without recurrent problems, he might be able to go home tomorrow afternoon or perhaps the following day. We may want to keep him around another 24 hours to make sure that he does not have any recurrent anginal discomfort. I will be happy to follow up with his care tomorrow.
--- NOTE | 2017-02-26 23:43 | NUR ---
IV MEDS/GROIN SITE Pt on IV antiplatelets, orders to notify MD when IV meds are complete for new orders. MD paged. Pt's groin site did have some minimal drainage, dressing was changed. Site slightly bruised, soft and non-tender. Pt's vitals stable, no pain, denies N/V or SOB. No other issues noted at this time.
[2017-02-27] VITALS (7 sets, daily range): BP systolic 119–138; BP diastolic 67–84; PULSE 73–84; RESP 16–18; O2SAT 93–96
[2017-02-27 03:13] LABS: Mean Corpuscular Hemoglobin 28.2 pg (27.0-35.0); Mean Corpuscular Volume 85.3 fL (81-100)
[2017-02-27] MEDS: MeTOProlol XL 25 mg ER24 Tablet PO SCH ×2 (08:23→20:54)
[2017-02-27] MEDS: Sodium Chloride LOK Flush 10 mL Syringe IVFLUSH SCH ×3 (08:24→20:54)
[2017-02-27] MEDS ORDERED: PRAS10TA5 PO (08:59)
--- NOTE | 2017-02-27 09:00 | PCM.PNMED ---
Subjective Date of Service Feb 27, 2017 Subjective No chest pain or dyspnea. He is feeling a little lightheaded at times while sitting. No vertigo. He is feeling a little bit depressed. Good appetite. No abdominal pain or diarrhea. No overnight events. Exam Vital Signs Vital Sign - Last Date Time Temp Pulse Resp B/P Pulse Ox O2 Delivery O2 Flow Rate FiO2 02/27/17 08:16 36.5 73 18 130/78 95 Room Air 02/26/17 13:00 2.00 Intake and Output 02/26/17 02/26/17 02/27/17 Cumulative From/Thru 15:00 23:00 07:00 02/24/17 23:18 - 02/27/17 06:49 Intake Total 214 ml 913 ml 1100 ml 7428 ml Output Total 1325 ml 1700 ml 8200 ml Balance 214 ml -412 ml -600 ml -772 ml Intake Oral 400 ml 500 ml 1320 ml IV Total 214 ml 513 ml 600 ml 6108 ml Output Urine Total 1325 ml 1700 ml 8200 ml # Voids 1 1 # Bowel Movements 0 0 Exam Alert and oriented 3, no distress. Fluent speech Anicteric sclera. Lungs are clear with normal rate and effort Heart is regular without murmur gallop or rub Abdomen soft nontender, flat Extremities are free of edema. Skin is free of rash or lesions. IVs and Medications Medications Reviewed: Medications were reviewed in detail Lab and Diagnostics Result Diagram: 02/27/17 0300 02/27/17 0300 Assessment & Plan # Acute Coronary Syndrome (NSTEMI), Present on Admission, improving. -Patient presented to [facility] urgency department complaining of acute onset substernal chest pressure rated 7 out of 10 and constant for her to 1.5 hours that resolved on 3 nitroglycerin pills and Patient had LAD stent thrombosis. He has been treated with Integrilin drip. The plan is to discharge today or tomorrow on Effient in addition to his baseline medications. We will discuss with cardiology this morning. We will also begin preauthorization of Effient with social work's assistance. # Hypercholesterolemia - We will continue home medication atorvastatin # Hypertension - Continue home medication metoprolol succinate ER 25 mg daily Disposition: Admitted to observation, secondary to severity of presenting symptoms, treatment plan, complexity of clinical work up, and risk of adverse events. CODE STATUS: Full code PCP: Dr. Jeosph Sapp [facility] Dr. Cristina heel dipper Dr. Barry Discharge planning: Keri. As above maybe today versus tomorrow depending on symptoms with ambulation and sitting today as well as preauthorization for his new medication Effient. Pain Evaluation: Adequate Pain Control VTE Prophylaxis: Sub-Q Heparin (Unfractionated) VTE Mechanical Devices: Intermittant Pneumatic CD Resuscitation Status: CPR: Attempt Resuscitation Jaleel Ivan MD Feb 27, 2017 09:00
--- NOTE | 2017-02-27 11:03 | NUR ---
Social Work: Readiness for Discharge D: Pt discussed in am rounds. Pt is improving and may be ready for discharge today or tomorrow. provided YARD SWITCH OPERATOR with a discharge prescription for Effient 10mg tablet (30 tabs) for insurance verification/copay amt. YARD SWITCH OPERATOR faxed script to pt's preferred pharmacy ([facility] [phone]). YARD SWITCH OPERATOR requested callback from pharmacy about cost. YARD SWITCH OPERATOR will update MD. EMR reviewed; pt has been I during admission. No sw needs identified at this time. A: Pt who is I at baseline. P: Anticipate pt to discharge home when ready; YARD SWITCH OPERATOR to get copay expense for medications as requested by . DAVID Schilling Addendum: 02/27/17 at 1130 by ROSI GOMEZ SS YARD SWITCH OPERATOR spoke with Tabitha at [facility] pharm. Copay is $419. YARD SWITCH OPERATOR updated .
--- NOTE | 2017-02-27 17:31 | PROG NOTE ---
[address] [address] PROGRESS NOTE PATIENT: ISABELLA CASTANEDA : 1960 MR#: [id number] ADMIT: 02/24/2017 JOB ID: [id number] DATE: 02/27/2017 The patient feels well today. He has had no recurrent anginal discomfort, though he is quite anxious and was aware of a pinpoint left lateral chest discomfort lasting for a few seconds and is reassured that that is a noncardiac-related chest discomfort. He has had no bleeding issues from his anti-platelet therapy and has received a couple of doses of Effient. I would like this gentleman to be ambulatory for the next 24 hours and remain in the hospital so we know that he is stable from a clinical standpoint before discharge. I will ask my associate to follow up on his care tomorrow to clear him for discharge.
--- NOTE | 2017-02-27 17:56 | NUR ---
Ambulation Pt. ambulated more today with no complications. Pts. right groin dressing is still C/D/I, slight bruising, no pain as well as soft on palpation. Pt. did state feeling light headed this morning but has resolved.
[2017-02-28 00:09] VITALS: BP 119/77; PULSE 73; RESP 18; O2SAT 92
[2017-02-28 03:11] VITALS: PULSE 63
[2017-02-28 03:34] VITALS: BP 143/82; PULSE 74; RESP 16; O2SAT 95
[2017-02-28 04:59] VITALS: PULSE 77
--- NOTE | 2017-02-28 05:51 | NUR ---
Uneventful night Pt denies any CP all shift, ambulating in hallway with , denies any SOB.
[2017-02-28 07:59] VITALS: BP 131/83; PULSE 74; RESP 16; O2SAT 96
[2017-02-28 08:00] VITALS: PULSE 77
[2017-02-28] MEDS: MeTOProlol XL 25 mg ER24 Tablet PO SCH (08:03)
[2017-02-28] MEDS: Sodium Chloride LOK Flush 10 mL Syringe IVFLUSH SCH (08:03)
--- NOTE | 2017-02-28 10:48 | NUR ---
Social Work: Discharge D: Pt discussed in morning rounds. Pt is being discharged today but will require the Effient medication that was provided to PASSENGER CONDUCTOR yesterday. is aware of the high co-pay amount and has alerted the pt and family of this. The family has contacted their pharmacy and were informed that this medication was not in stock. PASSENGER CONDUCTOR spoke with Tabitha at [facility] in [place], who states that they have one bottle of the Effient in the store and that they can fill it today. She has the prescription previously faxed on the pt's file and will start to fill this for the pt. PASSENGER CONDUCTOR informed MD who is writing discharge orders. PASSENGER CONDUCTOR met with the pt and spouse at bedside to confirm discharge plan. Family states that they had not called the [facility] and prefer to use a different location however they are happy that they will be able to obtain this medication today. PASSENGER CONDUCTOR provided them with the address to this location. They will request a transfer of the prescription to their preferred pharmacy for future refills. Family states they have no further concerns about discharge and are appreciative of MD and PASSENGER CONDUCTOR assistance. No further sw needs identified at this time. A: pt who is I at baseline. P: Pt to discharge home with spouse via POV; no further sw needs. DAVID Schilling
[2017-02-28] MEDS ORDERED: ASPI325T32 PO (11:12)
[2017-02-28] MEDS ORDERED: ATOR80TA PO (11:12)
--- NOTE | 2017-02-28 11:13 | PCM.DIMED ---
Discharge Instructions Date of Service Feb 28, 2017 Dates of Hospitalization Feb 24, 2017 at 22:30 Discharge Diagnosis Discharge Diagnosis #. NSTEMI (heart attack) #. Coronary artery disease # Hypercholesterolemia # Hypertension Diet Heart Healthy Activity Limited until seen by PCP Call your provider Shortness of breath, Chest pain Patient Instructions Follow-up Provider: Jovana Cristina MD Follow-up with PCP in: 2 weeks Jaleel Ivan MD Feb 28, 2017 11:13
--- NOTE | 2017-02-28 11:16 | PCM.DC.MED ---
Discharge Summary Date of Service Feb 28, 2017 Dates of Hospitalization Date of Hospital Admission Feb 24, 2017 at 22:30 Date of Discharge: Feb 28, 2017 Providers: Admitting Physician: Diamond Valentin DO Primary Care Physician: Mariano Barker DO Attending Physician: Diamond Valentin DO Diagnosis at Time of Discharge Diagnosis at Time of Discharge #. NSTEMI (heart attack) #. Coronary artery disease # Hypercholesterolemia # Hypertension Consultations Cardiology Procedures Invasive Procedures 1. Selective coronary angiogram a. Left main coronary artery is normal. b. The left anterior descending artery is transapical and has in- stent thrombosis in the distal most stent with LORI-3 flow. The first and second diagonal branches remains patent. c. The circumflex artery has diffuse [id number] disease. d. The dominant right coronary artery has diffuse irregularity of 20 % to 30% stenosis throughout. The right posterior descending branch has severe stenosis in the distal portion. The right posterolateral branch has minor irregularity. 2. Integrilin 9.5 cc was given intracoronary due to in-stent thrombosis of the distal-most stent of the left anterior descending. 3. Aortic pressure is 133/81 mmHg. David Collins MD 02/26/17 1048 <Electronically signed by David Collins MD> 02/27/17 1346 Brief History This is a pleasant 56-year-old male with past medical history of hypertension, hyperlipidemia, obstructive sleep apnea, and unstable angina status post coronary catheterization 2 with placement of 6 drug-eluting stents within the past 3 weeks. Patient presented to [facility] emergency department or Dr. Plascencia, after experiencing acute onset of substernal chest pressure while walking his dogs at 4 PM today. Patient states that the pain was rated 7- 9 out of 10 and felt like a pressure on his chest. Associated symptoms included left arm pain, SOB, and sweats. Patient describes that the pressure was constant for 1.5 hours until he was seen at the ED. In the ED patient received 3 sublingual nitroglycerin and Nitropaste which resolved his chest pain pain/pressure however dropped his blood pressure. After removal of Nitropaste patient's blood pressure responded return to normal however his chest pain had now resolved. Patient was transferred to [facility] for further workup. He currently is chest pain free. Patient denies nausea, vomiting, fevers, abdominal pain, diarrhea, constipation. At [facility] ED patient had troponin of 0.55 with normal (0.00-1.5) range EKG at sinus rhythm with a rate of 94, normal axis, T wave inversion in aVL, left bundle branch block in 1, otherwise no ST or T-wave abnormalities EKG at [facility] showed left bundle branch in lead 1 with 3 in aVL and aVF, T-wave inversions in aVL otherwise no change from previous EKG done at [facility] Troponin eere at [facility] was 0.3 Troponin at [facility] was 0.55 within the normal range. Vital signs at [facility] blood pressure 163/102, heart rate 93, RR 20, O2 sat 90% on room air, temperature 97.7 The following labs were done at [facility] Hemogram showed: WBCs 11.3, H/H 14.8/44.0, platelets 317, otherwise normal INR 0.9 APTT 29 D-dimer was negative, BNP 24.6, lipase 140, normal is (73-393), amylase 61 with normal (25-150), Chemistry panel: glucose 133, creatinine 1.1, BUN 20, sodium 139, potassium 4.1 , chloride 101, CO2 26, alkaline phosphatase was elevated at 123 with normal (46 -116), AST and ALT within normal range. Recent cardiac procedures History abnormal stress test 01/20/[address] Marie secondary to history of worsening dyspnea on exertion. Myocardial perfusion imaging characterized him size, moderate intensity, reversible inferolateral perfusion defect. On 02/07/2017 patient was taken to the [facility] by Dr. Marie, for left sided cardiac catheterization and coronary angiogram. Both showed multivessel coronary artery disease involving the very distal aspect of proximal left anterior descending, extending into the mid left anterior descending and involving proximal diagonal branch, mid obtuse marginal stenosis and ostial ramus intermedius stenosis. On 02/07/2017 patient was seen by Dr. Barry eventual electric razor assembler, for balloon angioplasty and stenting to the first diagonal branch. Patient had significant hemodynamic stenosis of the second diagonal branch with FFR of 0.69. Patient had LORI-3 flow distally after placement. On 02/21/2017 patient was again seen by Dr. Barry for further coronary catheterization procedure. Patient had successful balloon angioplasty and stenting of the bifurcation lesion of the left anterior descending artery and second diagonal branch. Patient had 5 drug-eluting stents placed with 4 in the left anterior descending and one in the diagonal branch and reverse salted in a LORI-3 flow distally. The procedure was called care by coronary dissection which was successfully treated with stenting. Hospital Course # Acute Coronary Syndrome (NSTEMI), Present on Admission, improving. -Patient presented to [facility] urgency department complaining of acute onset substernal chest pressure rated 7 out of 10 and constant for her to 1.5 hours that resolved on 3 nitroglycerin pills and Patient had LAD stent thrombosis. He has been treated with Integrilin drip. The plan is to discharge today or tomorrow on Effient in addition to his baseline medications. We will discuss with cardiology this morning. We will also begin preauthorization of Effient with social work's assistance. The patient did well for regards of his end STEMI. He was treated with medical therapy including Integrilin after discovering his LAD stent thrombosis. On the day of discharge cardiology recommends ongoing Effient, aspirin increases from 81-325 mg, Plavix is stopped, metoprolol continues at 25, atorvastatin increases from 40-80 mg a day. # Hypercholesterolemia - We will continue home medication atorvastatin Cardiology requested that he be discharged home on higher dose atorvastatin, changing from 40-80. # Hypertension - Continue home medication metoprolol succinate ER 25 mg daily Disposition: Admitted to observation, secondary to severity of presenting symptoms, treatment plan, complexity of clinical work up, and risk of adverse events. CODE STATUS: Full code PCP: Dr. Joesph Nichols [facility] Stainer Dr. Marie corporate buyer Dr. Barry Discharge planning: Keri. As above maybe today versus tomorrow depending on symptoms with ambulation and sitting today as well as preauthorization for his new medication Effient. Exam Vital Signs (Last) Date Time Temp Pulse Resp B/P Pulse Ox O2 Delivery O2 Flow Rate FiO2 02/28/17 07:59 36.6 74 16 131/83 96 Room Air 02/26/17 13:00 2.00 Exam Patient was seen and examined on the day of discharge Test 02/24/17 23:05 02/25/17 02:39 02/26/17 02:56 02/26/17 08:50 Magnesium Level 2.2mg/dL (1.6-2.6) Hold Deleon Top Tube Received (Received) Neutrophils (%) (Auto) 68% (40-74) Lymphocytes (%) (Auto) 21% (14-46) Monocytes (%) (Auto) 10% (4-12) Eosinophils (%) (Auto) 1% (0-5) Basophils (%) (Auto) 0% (0-3) Prothrombin Time 12.7sec (8.1-12.5) Prothromb Time International Ratio 0.96ratio Total Creatine Kinase 350U/L (21-232) Creatine Kinase MB 43.6ng/mL (0.0-10.4) Creatine Kinase MB % 12.5% (0.0-5.0) Triglycerides Level 136mg/dL (0-149) Cholesterol Level 162mg/dL (100-199) LDL Cholesterol, Calculated 106.800mg/dL (0-99) VLDL Cholesterol 27.200mg/dL HDL Cholesterol 28mg/dL (>39) Cholesterol/HDL Ratio 5.79 (0.0-4.4) Activated Partial Thromboplast Time 44.2sec (22.8-33.0) Total Bilirubin 0.3mg/dL (0.0-1.2) Aspartate Amino Transf (AST/SGOT) 38U/L (0-50) Alanine Aminotransferase (ALT/SGPT) 38U/L (0-44) Alkaline Phosphatase 94U/L (25-150) Troponin T 0.565ug/L (0.0-0.011) Total Protein 6.5g/dL (6.4-8.4) Albumin 3.5g/dL (3.4-5.0) Test 02/27/17 03:00 White Blood Count 8.7th/mm3 (3.8-10.1) Red Blood Count 4.64mil/mm3 (4.40-5.80) Hemoglobin 13.1g/dL (13.8-17.2) Hematocrit 39.6% (41.0-50.0) Mean Corpuscular Volume 85.3fL (81-100) Mean Corpuscular Hemoglobin 28.2pg (27.0-35.0) Mean Corpuscular Hemoglobin Concent 33.1% (32.0-37.0) Red Cell Distribution Width 14.2% (12.3-15.4) Platelet Count 238bil/L (150-400) Sodium Level 140mEq/L (134-144) Potassium Level 4.0mEq/L (3.5-5.2) Chloride Level 107mEq/L (97-108) Carbon Dioxide Level 19mmol/L (18-29) Blood Urea Nitrogen 15mg/dL (6-24) Creatinine 0.75mg/dL (0.76-1.27) Estimat Glomerular Filtration Rate 115mL/min (>59) Glucose Level 116mg/dL (60-99) Calcium Level 8.9mg/dL (8.5-10.1) Discharge Medications Discharge Medications Aspirin (Aspirin) 325 Mg Tablet 325 MG PO DAILY Prescribed by: JALEEL NYE MD Atorvastatin (Lipitor) 80 Mg Tablet 80 MG PO DAILY Prescribed by: JALEEL NYE MD Cholecalciferol (Vitamin D3) (Vitamin D3) 1,000 Unit Tab.chew 1,000 UNIT PO DAILY (Reported) Clobetasol Propionate/Emoll (Clobetasol Emollient 0.05% Crm) 15 Gm Cream..g. 1 APPL TOP BID (Reported) Lisinopril (Lisinopril) 10 Mg Tablet 10 MG PO DAILY (Reported) Magnesium Oxide (Magnesium) 400 Mg Capsule 400 MG PO DAILY (Reported) Metoprolol Succinate ER (Toprol XL) 25 Mg Tablet 25 MG PO DAILY Prescribed by: KINJAL MARIE MD Multivitamin (Once Daily) 1 Each Tablet 1 EACH PO DAILY (Reported) Prasugrel HCl (Effient) 10 Mg Tablet 10 MG PO DAILY Prescribed by: JALEEL NYE MD Followup Plan Disposition: Home Discharge Diet: Heart Healthy Discharge Activity: Limited until seen by PCP Follow-up Provider: Kinjal Marie MD Follow-up with PCP in: 2 weeks Time spent 45 minutes Jaleel Nye MD Feb 28, 2017 11:16
--- NOTE | 2017-02-28 12:18 | NUR ---
Discharge Pt. discharged to home with and left room 2006 [facility] at ~1200. Pt. took all his belongings with him including his CPAP machine. Pt. was given educational material for aspirin, atorvastatin, and prasugrel. Pt. was also instructed to follow up with Dr. Cristina on March 31 at 1345 but if there was an earlier date the office [place] [facility] [place] back. Pt. understood and as well. Pt. IV DC'D on left arm intact and asymptomatic. Pt. was wheeled out of unit.
== END 2017-02-28 12:00 | disposition home or self-care (01) | DRG 282 ==
LOC: INTOOBSV 22:30 → PCC 22:30 → OBSVTOIN 22:30
PROVIDERS: ADMIT Internal Medicine; ATTEND Internal Medicine
PROC: 4A023N7 Measurement of Cardiac Sampling and Pressure, Left Heart, Percutaneous Approach (ICD-10-PCS; principal; 2017-02-26)
PROC: 3E073PZ Introduction of Platelet Inhibitor into Coronary Artery, Percutaneous Approach (ICD-10-PCS; 2017-02-26)
PROC: B2111ZZ Fluoroscopy of Multiple Coronary Arteries using Low Osmolar Contrast (ICD-10-PCS; 2017-02-26)
DX: T82.855A Stenosis of coronary artery stent, initial encounter (principal); I21.4 Non-ST elevation (NSTEMI) myocardial infarction; Y83.8 Other surgical procedures as the cause of abnormal reaction of the patient, or of later complication, without mention of misadventure at the time of the procedure; I25.119 Atherosclerotic heart disease of native coronary artery with unspecified angina pectoris; I10 Essential (primary) hypertension; E78.5 Hyperlipidemia, unspecified; G47.33 Obstructive sleep apnea (adult) (pediatric); Z79.82 Long term (current) use of aspirin; Z82.49 Family history of ischemic heart disease and other diseases of the circulatory system; Z87.891 Personal history of nicotine dependence